=== PATIENT | male | born 1980 | race African-American/Black ===

== ENCOUNTER 2019-10-06 02:38 | Emergency (ER) | payer MEDICAID ==
[~2019-10-06] VITALS: Ht 170.2 cm; Wt 131.5 kg
[2019-10-06 02:56] VITALS: BP 159/105
== END 2019-10-06 03:48 | disposition home or self-care (01) ==
LOC: ER 02:38
DX: J45.909 Unspecified asthma, uncomplicated (principal); Z53.21 Procedure and treatment not carried out due to patient leaving prior to being seen by health care provider